=== PATIENT | female | born 1980 | race Caucasian/White ===

== ENCOUNTER → 2023-08-26 18:06 | Outpatient (REF) | payer BC, SELFPAY | LOC: RAD 18:06 | PROVIDERS: ATTENDING PHYSICIAN Nurse Practitioner | DX: J06.9 Acute upper respiratory infection, unspecified (principal) | CPT/HCPCS: 71046 ==

== ENCOUNTER → 2023-10-03 14:34 | Outpatient (REF) | payer BC, SELFPAY | LOC: WDC 14:34 | PROVIDERS: ATTENDING PHYSICIAN Nurse Practitioner Adult Health; FAMILY PHYSICIAN Internal Medicine | DX: Z12.31 Encounter for screening mammogram for malignant neoplasm of breast (principal) | CPT/HCPCS: 77063; 77067 ==

== ENCOUNTER → 2024-10-05 10:07 | Outpatient (REF) | payer BC, SELFPAY | LOC: EMG 10:07 | PROVIDERS: ATTENDING PHYSICIAN Student in an Organized Health Care Education/Training Program; FAMILY PHYSICIAN Internal Medicine | DX: J98.4 Other disorders of lung (principal); K51.919 Ulcerative colitis, unspecified with unspecified complications; M25.50 Pain in unspecified joint; M79.10 Myalgia, unspecified site; R20.0 Anesthesia of skin | CPT/HCPCS: 95886; 95911 ==

== ENCOUNTER → 2024-10-07 07:20 | Outpatient (REF) | payer BC, SELFPAY | LOC: WDC 07:20 | PROVIDERS: ATTENDING PHYSICIAN Nurse Practitioner Adult Health | DX: Z12.31 Encounter for screening mammogram for malignant neoplasm of breast (principal) | CPT/HCPCS: 77063; 77067 ==

== ENCOUNTER → 2024-10-26 13:09 | Outpatient (REF) | payer BC, SELFPAY | LOC: RCS 13:09 | PROVIDERS: ATTENDING PHYSICIAN Nurse Practitioner | DX: R55 Syncope and collapse (principal); R00.0 Tachycardia, unspecified | CPT/HCPCS: 93225; 93226 ==

== ENCOUNTER → 2025-03-05 08:53 | Outpatient (REF) | payer BC, SELFPAY | LOC: RCS 08:53 | PROVIDERS: ATTENDING PHYSICIAN Internal Medicine Cardiovascular Disease; FAMILY PHYSICIAN Internal Medicine; REFERRING PHYSICIAN Internal Medicine Critical Care Medicine | DX: R06.02 Shortness of breath (principal); R00.0 Tachycardia, unspecified | CPT/HCPCS: 93306; 93356 ==